=== PATIENT | male | born 1960 | race Caucasian/White ===

== ENCOUNTER → 2017-08-15 | Outpatient (CLI) | payer BC ==
[~2017-08-15] MED LIST: CHOL200024 PO; CYCL-259 PO; FENOFIBRATE PO; FISH OIL OMEGA1 EACH PO; LISI1TAB5 PO; MAGNESIUM PO; MELO15TA24 PO; MULT1TAB13 PO; NAPR220C2 PO; OXYC-307 PO; TRAM1TAB6 PO
== END | disposition home or self-care (01) ==
LOC: RAD 10:33
PROVIDERS: ATTEND Neurological Surgery
DX: M51.36 Other intervertebral disc degeneration, lumbar region (principal); M43.16 Spondylolisthesis, lumbar region; M48.061 Spinal stenosis, lumbar region without neurogenic claudication; M48.07 Spinal stenosis, lumbosacral region
CPT/HCPCS: 72110